=== PATIENT | male | born 1960 | race Caucasian/White ===

== ENCOUNTER 2019-05-06 14:24 | Observation (INO) | payer BC ==
[2019-05-06] MEDS ORDERED: NS 0.9% 1000 ML** 2,000 ML IV ONE (15:35)
--- NOTE | 2019-05-06 15:38 | ED ---
Abdominal Pain/Male - HPI Summary HPI Summary: Patient is a 59 y/o M presenting to the ED for a chief compliant of nausea and vomiting that began the night of 05/01/19. Patient reports that he was in [place] for an event and drank a few beers after which he felt nausea, vomiting, and generalized weakness. At that time, patient had an episode of vomiting with a streak of blood. He is currently complaining of the same symptoms as well as heartburn, dizziness, lightheadedness, and abdominal pain in the epigastric and umbilical regions. He last had a bowel movement on 05/05/19. Patient denies any fever, chills, erythema of eyes, sore throat, SOB, cough, diarrhea, dysuria, hematuria, myalgia, back pain, edema, or rash. PMHx is significant for clavicle fracture and PSHx is significant or PVD with stent placement in the bilateral legs and hip replacement on 02/10/19. He denies any abdominal surgeries or history of cancer. Patient admits weekly alcohol use, cigar use, and marijuana use daily. - History of Current Complaint Chief Complaint: EDAbdPain Stated Complaint: ABD PAIN PER PT Time Seen by Provider: 05/06/19 15:19 Hx Obtained From: Patient Onset/Duration: Sudden Onset, Lasting Days, Still Present Timing: Intermittent, Lasting Days Severity Initially: Moderate Severity Currently: Moderate Pain Intensity: 6 Pain Scale Used: 0-10 Numeric Location: Epigastric, Umbilical Radiates: No Aggravating Factor(s): Nothing Alleviating Factor(s): Nothing Associated Signs And Symptoms: Positive: Chest Pain - Heartburn, Dizzy, Decreased Appetite, Nausea, Vomiting. Negative: Fever, Cough, Urinary Symptoms - Negative dysuria or hematuria, Diarrhea - Allergies/Home Medications Allergies/Adverse Reactions: Allergies Allergy/AdvReac Type Severity Reaction Status Date / Time MS Penicillins [Penicillins] Allergy Unknown Verified 05/06/19 14:48 Reaction Details Home Medications: Home Medications Ibuprofen TAB* [Advil TAB*] 800 mg PO Q8H PRN 05/06/19 [History Confirmed ] Lisinopril/Hydrochlorothiazide [Lisinopril-Hctz 20-25 mg Tab] 1 tab PO DAILY [History Confirmed 05/06/19] Metoprolol Tartrate TAB* [Lopressor TAB*] 100 mg PO BID 05/06/19 [History Confirmed 05/06/19] amLODIPine TAB* [Norvasc 5 mg TAB*] 10 mg PO DAILY 05/06/19 [History Confirmed 05/06/19] PMH/Surg Hx/FS Hx/Imm Hx Previously Healthy: Yes Endocrine/Hematology History: Denies: Hx Diabetes Cardiovascular History: Reports: Hx Hypertension, Hx Peripheral Vascular Disease Denies: Hx Congestive Heart Failure, Hx Hypercholesterolemia, Hx Pacemaker/ ICD Musculoskeletal History: Reports: Hx of Fracture(s) - Clavicle Sensory History: Denies: Hx Legally Blind, Hx Deafness, Hx Hearing Aid Opthamlomology History: Denies: Hx Legally Blind EENT History: Denies: Hx Deafness Psychiatric History: Denies: Hx Panic Disorder - Surgical History Surgical History: Yes Surgery Procedure, Year, and Place: tonsilectomy, hip replacement, stent placement - Immunization History Immunizations Up to Date: Yes Infectious Disease History: No Infectious Disease History: Denies: Traveled Outside the [place] in Last 30 Days - Family History Known Family History: Negative: Diabetes - Social History Occupation: Employed Full-time Lives: With Family Alcohol Use: Weekly Hx Substance Use: Yes Substance Use Type: Reports: Marijuana Substance Use Comment - Amount & Last Used: daily Hx Tobacco Use: Yes Smoking Status (MU): Current Some Day Smoker Type: Cigars Do You Chew or Dip Tobacco: No Have You Chewed or Dipped Tobacco in the LAST YEAR: No Have You Smoked in the Last Year: Yes Review of Systems Negative: Fever, Chills Negative: Erythema Negative: Sore Throat Positive: Chest Pain - Heartburn Negative: Shortness Of Breath, Cough Positive: Abdominal Pain - Epigastric and umbilical, Vomiting, Nausea. Negative : Diarrhea Negative: Myalgia - Including back pain Negative: Rash Neurological: Other - Positive dizziness and lightheadedness Positive: Weakness - Generalized All Other Systems Reviewed And Are Negative: Yes Physical Exam - Summary Physical Exam Summary: Constitutional: Well-developed, Well-nourished, Alert. (-) Distressed Skin: Warm, Dry HENT: Normocephalic; Atraumatic. Dry oral mucosa. Eyes: Conjunctiva normal Neck: Musculoskeletal ROM normal neck. (-) JVD, (-) Stridor, (-) Tracheal deviation Cardio: Rhythm regular, rate normal, Heart sounds normal; Intact distal pulses; The pedal pulses are 2+ and symmetric. Radial pulses are 2+ and symmetric. (-) Murmur Pulmonary/Chest wall: Effort normal. (-) Respiratory distress, (-) Wheezes, (-) Rales Abd: Soft, (-) tenderness, (-) Distension, (-) Guarding, (-) Rebound Musculoskeletal: (-) Edema Lymph: (-) Cervical adenopathy Neuro: Alert, Oriented x3 Psych: Mood and affect Normal Triage Information Reviewed: Yes Vital Signs On Initial Exam: Initial Vitals Temp Pulse Resp BP Pulse Ox 98.2 F 81 16 85/54 98 05/06/19 14:41 05/06/19 14:41 05/06/19 14:41 05/06/19 14:41 05/06/19 14:41 Vital Signs Reviewed: Yes Procedures - Sedation Patient Received Moderate/Deep Sedation with Procedure: No Diagnostics - Vital Signs Vital Signs Temp Pulse Resp BP Pulse Ox 05/06/19 14:41 98.2 F 81 16 85/54 98 - Laboratory Result Diagrams: 05/06/19 15:54 05/06/19 15:54 Lab Statement: Any lab studies that have been ordered have been reviewed, and results considered in the medical decision making process. - Radiology Chest X-ray Radiology Interpretation Completed By: Radiologist Summary of Radiographic Findings: Chest X-ray IMPRESSION: FINDINGS CONSISTENT WITH COPD, NO EVIDENCE FOR ACUTE DISEASE. Reviewed by Dr. Beck. - CT Abdomen/Pelvis CT CT Interpretation Completed By: Radiologist Summary of CT Findings: Abdomen/Pelvis CT IMPRESSION: 1. NO EVIDENCE FOR ACUTE FINDING. 2. HEPATIC STEATOSIS. 3. PROMINENT ATHEROSCLEROTIC CHANGE. 4. SMALL HIATAL HERNIA. Reviewed by Dr. Beck. - Ultrasound Gallbladder US Ultrasound Interpretation Completed By: Radiologist Summary of Ultrasound Findings: Gallbladder US IMPRESSION: 1. NORMAL EXAMINATION OF THE GALLBLADDER. 2. FATTY INFILTRATION OF THE LIVER. 3. THERE IS A FOCAL AREA OF DECREASED ECHOGENICITY ADJACENT TO THE GALLBLADDER AND PORTAL REGION LIKELY REPRESENTING FOCAL SPARING ALTHOUGH A MASS CANNOT BE EXCLUDED. THIS CAN BE FURTHER EVALUATED WITH A MRI OF THE LIVER WITH CONTRAST. Reviewed by Dr. Beck. Abdominal Pain Male Course/Dx - Course Course Of Treatment: Patient is a 59 y/o M presenting to the ED for a chief compliant of nausea and vomiting that began the night of 05/01/19. Patient reports that he was in [place] for an event and drank a few beers after which he felt nausea, vomiting, and generalized weakness. At that time, patient had an episode of vomiting with a streak of blood. He is currently complaining of the same symptoms as well as heartburn, dizziness, lightheadedness, and abdominal pain in the epigastric and umbilical regions. He last had a bowel movement on . Patient denies any fever, chills, erythema of eyes, sore throat, SOB, cough, diarrhea, dysuria, hematuria, myalgia, back pain, edema, or rash. PMHx is significant for clavicle fracture and PSHx is significant or PVD with stent placement in the bilateral legs and hip replacement on 02/10/19. He denies any abdominal surgeries or history of cancer. Patient admits weekly alcohol use, cigar use, and marijuana use daily. On exam, dry oral mucosa. In the ED course , patient was given fluids. Laboratory abnormal findings: WBC 21.1, absolute neuts 15.2, absolute monos 2.1, sodium 130, potassium 3.1, chloride 91, anion gap 16, BUN 65, creatinine 4.18, glucose 125, lactic acid 2.1, calcium 11.9, c- reactive protein 52.65,. Abdomen/Pelvis CT IMPRESSION: 1. NO EVIDENCE FOR ACUTE FINDING. 2. HEPATIC STEATOSIS. 3. PROMINENT ATHEROSCLEROTIC CHANGE. 4. SMALL HIATAL HERNIA. Gallbladder US IMPRESSION: 1. NORMAL EXAMINATION OF THE GALLBLADDER. 2. FATTY INFILTRATION OF THE LIVER. 3. THERE IS A FOCAL AREA OF DECREASED ECHOGENICITY ADJACENT TO THE GALLBLADDER AND PORTAL. REGION LIKELY REPRESENTING FOCAL SPARING ALTHOUGH A MASS CANNOT BE EXCLUDED. THIS CAN BE. FURTHER EVALUATED WITH A MRI OF THE LIVER WITH CONTRAST. Chest X-ray IMPRESSION : FINDINGS CONSISTENT WITH COPD, NO EVIDENCE FOR ACUTE DISEASE. At 17:34, Dr. Longo agrees to [place] the [place] [facility] [place] a diagnosis of acute renal failure, vomiting, and gastritis. Patient will be admitted [place] [facility] [place] a diagnosis of acute renal failure, vomiting, and gastritis. - Diagnoses Provider Diagnoses: Acute renal failure, Vomiting, Gastritis - Provider Notifications Discussed Care Of Patient With: Zachary Espinosa - At 17:34, Dr. Longo agrees to admit the patient to [facility] [place] a diagnosis of acute renal failure, vomiting, and gastritis. Time Discussed With Above Provider: 17:34 Instructed by Provider To: Admit As Inpatient - Critical Care Time Critical Care Time: 30-74 min - 60 minutes Discharge ED - Sign-Out/Discharge Documenting (check all that apply): Patient Departure - Admit - Discharge Plan Condition: Stable Disposition: ADMITTED TO [facility] Referrals: Tejas Liang, ENVIRONMENTAL SUSTAINABILITY MANAGER [Primary Care Provider] - - Attestation Statements Document Initiated by Scribe: Yes Documenting Scribe: Sandy Tello Provider For Whom Scribe is Documenting (Include Credential): Richard Beck MD Scribe Attestation: Sandy Greenberg, scribed for Richard Beck MD on 05/06/19 at 1931. Status of Scribe Document: Ready
[2019-05-06 16:19] LABS: Hematocrit 45 % (42-52); Hemoglobin 14.9 g/dL (14.0-18.0); Mean Corpuscular HGB Conc 33 g/dL (31-36); Mean Corpuscular Hemoglobin 29 pg (27-31); Mean Corpuscular Volume 85 fL (80-94); Mean Platelet Volume 9.3 fL (7.4-10.4); Platelet Count 255 10^3/uL (150-450); Red Blood Count 5.22 10^6 /uL (4.18-5.48); Red Cell Distribution Width 14 % (10-15); White Blood Count 21.1 10^3/uL (3.5-10.8)
[2019-05-06 16:21] LABS: ABS Eosinophils 0.4 10^3/ul (0-0.6); ABS Lymphocytes 3.4 10^3/ul (1.0-4.8); ABS Monocytes 2.1 10^3/ul (0-0.8); ABS Neutrophils 15.2 10^3/ul (1.5-7.7); Eosinophil % 1.7 %; Lymphocyte % 16.1 %; Nucleated Red Blood Cells % 0.1
[2019-05-06 16:47] LABS: Albumin/Globulin Ratio 1.1 (1-3); BUN/Creatinine Ratio 15.6 (8-20); C Reactive Protein 52.65 mg/L (<8.01); Calcium 11.9 mg/dL (8.6-10.3); EGFR African American 17.9 (>60); EGFR Non-African American 14.8 (>60); Globulin 3.7 g/dL (2-4); Potassium 3.1 mmol/L (3.5-5.0); Total Bilirubin 0.7 mg/dL (0.2-1.0); Total Protein 7.7 g/dL (6.4-8.9)
[2019-05-06] MEDS ORDERED: Acetaminophen TAB* 325 MG PO PRN (19:08)
[2019-05-06] MEDS ORDERED: Morphine INJ* 2 MG/ML 1 ML SYRINGE (TWO MG - NEW SYRINGE VERSION) IV PRN (19:08)
[2019-05-06] MEDS ORDERED: Cyclobenzaprine TAB* 10 MG PO PRN (19:12)
[2019-05-06] MEDS ORDERED: Ondansetron INJ* 2 MG/ML VIAL IV PRN (19:14)
--- NOTE | 2019-05-06 20:39 | HP ---
CC: Tejas Liang NP * HISTORY AND PHYSICAL: DATE OF ADMISSION: 05/06/19 PRIMARY CARE PROVIDER: Tejas Liang NP. ATTENDING PHYSICIAN: Dr. Zachary Espinosa.* (DICTATED BY JOSE JUAN CARRERA NP) CHIEF COMPLAINT: Abdominal pain, nausea, and vomiting. HISTORY OF PRESENT ILLNESS: Mr. Padron is a 59-year-old male with past medical history of hypertension and peripheral vascular disease who presents to the emergency room today with 5 days of nausea, vomiting, and abdominal pain. The patient denies any sick contacts. He did have a right hip replacement back in March and has been doing well since that time, though 5 days ago somewhat suddenly developed abdominal pain, nausea, and vomiting. During that time, he has been unable to tolerate any oral intake and has vomited up everything that he has attempted to eat or drink. Abdominal pain at the worst is 6/10. He has not taken any pain medications for this, but notes that the pain is better when he is sitting up and worse when he is lying down. He also notes heartburn when lying down. He does occasionally have heartburn, though this is more significant than his usual. At this time, in the emergency room, he rates his abdominal pain a 2/10. He has no nausea or vomiting and on my exam, he was eating a sandwich. He reports using ibuprofen approximately 3 to 4 times per week and uses 400 to 600 mg per day. The patient denies any fever, chills, shortness of breath, cough, diarrhea, or dysuria. In the emergency room, the patient was found to have leukocytosis with a white blood count of 21. He was noted to have mild hyponatremia and hypokalemia as well as a significant acute kidney injury with a creatinine of 4.18. Most recent labs in our system are from approximately 1 year ago and at that time, creatinine was 1.68. He was also noted to have a lactic acid of 2.1 and a CRP of 52. He was hypotensive on arrival. He received IV fluids with resolution of hypotension. He additionally had imaging which was unremarkable for any acute process. Due to these laboratory findings, the hospitalist service was asked to evaluate for admission. PAST MEDICAL HISTORY: 1. Hypertension. 2. Peripheral vascular disease. PAST SURGICAL HISTORY: 1. Right hip replacement in 2018. 2. Bilateral lower extremity stent placement in 2016. HOME MEDICATIONS: 1. Amlodipine 10 mg p.o. daily. 2. Flexeril 10 mg p.o. t.i.d. p.r.n. for muscle spasm. 3. Ibuprofen 800 mg p.o. q.8 hours p.r.n. for pain. 4. Lisinopril/hydrochlorothiazide 20/25 one tab p.o. daily. 5. Metoprolol tartrate 100 mg p.o. b.i.d. ALLERGIES: PENICILLIN. FAMILY HISTORY: The patient has a significant family history of coronary artery disease with his mother dying of an NH at 71 and his father dying of an NH at 69. SOCIAL HISTORY: The patient has a [id number] smoking history. He quit smoking cigarettes 4 years ago and now smokes 2 cigars per day. He reports drinking 3 to 4 beers and a glass of whisky each night, although has not been drinking since his hip replacement in March. He does use recreational marijuana. 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 He lives at home and his daughter lives with him intermittently. His daughter, Peg, will be his surrogate decision maker in the event he is unable to make his own decisions. REVIEW OF SYSTEMS: An 11-point review of systems was performed and all the pertinent positive and negative findings are in the HPI. All other systems are negative. PHYSICAL EXAMINATION GENERAL: Mr. Padron is a well-developed, well-nourished white male, sitting in bed , in no acute distress. He appears his stated age. VITAL SIGNS: Temp 98.2, heart rate 75, respiratory rate 16, oxygen saturation 97 % on room air, blood pressure 137/61. HEENT: Head is atraumatic, normocephalic. Visual fernandes are grossly intact. Pupils are equal, round, and reactive to light and accommodation. Oral mucous membranes moist. NECK: Thyroid not palpable. Trachea at midline. No lymphadenopathy. RESPIRATORY: Symmetrical chest expansion. Lungs are clear to auscultation throughout. No rhonchi, wheezes, or rales. CARDIOVASCULAR: Regular rate and rhythm. S1, S2 present. No murmurs, rubs, or gallops. No JVD. ABDOMEN: Soft. Tender to palpation throughout. Bowel sounds normoactive. EXTREMITIES: Skin warm and smooth bilaterally. No edema. No clubbing or cyanosis. Pedal pulses 2+ bilaterally. NEUROLOGIC: Awake, alert, and oriented x4. Moves all extremities. DIAGNOSTIC STUDIES/LAB DATA: WBC 21.1, RBC 5.22, hemoglobin 14.9, hematocrit 45, platelets 255. Sodium 130, potassium 3.1, chloride 91, carbon dioxide 23, BUN 65, creatinine 4.18, glucose 125, lactic acid 2.1. CRP 52. Abdomen and pelvis CT reads as no evidence for acute finding. Hepatic steatosis. Prominent atherosclerotic change. Small hiatal hernia. Gallbladder ultrasound reads as normal examination of the gallbladder. Fatty infiltration of the liver. There is a focal area of decreased echogenicity adjacent to the gallbladder and portal region, likely representing focal spine, although a mass cannot be excluded. This can be further evaluated with an MRI of the liver with contrast. Chest x-ray reads as findings consistent with COPD. No evidence for acute disease. ASSESSMENT AND PLAN: Mr. Padron is a 59-year-old male with past medical history of hypertension and peripheral vascular disease who presents to the emergency department today with 5 days of nausea, vomiting, and abdominal pain and was found to have acute kidney injury and meeting systemic inflammatory response syndrome criteria. The patient will be admitted to observation for: 1. Acute kidney injury. The patient's creatinine is 4.18 and previous creatinine on record from 2018 was 1.68. I suspect that this is all secondary to dehydration from his vomiting. He has received 2 L of fluid in the emergency room and I will continue aggressive fluid resuscitation with LR 200 mL per hour overnight. I will recheck a BMP in the morning. 2. Systemic inflammatory response syndrome. The patient is meeting systemic inflammatory response syndrome criteria with leukocytosis and a lactic acid of 2.1. I suspect this is secondary to a viral gastroenteritis and not any bacterial source. There were no acute findings on imaging. A UA is pending at this time, though I have low suspicion for a urinary tract infection. Lactate will be rechecked at 1999, though antibiotics will not be initiated at this time. 3. Gastroenteritis. This very much appears to be a viral gastroenteritis lasting approximately 5 days. While in the emergency room, the patient is eating a sandwich and does not have any significant nausea, vomiting, or abdominal pain, so I suspect that this is nearly resolved. We will continue supportive care. 4. Abnormal ultrasound findings. As noted above, there were some abnormal findings noted on the gallbladder ultrasound and the radiologist reported that a mass could not be excluded. Radiology recommended an MRI of the liver with contrast, which I have ordered at this time due to the presence of abdominal pain. We will await the results of that MRI. 5. Hypokalemia. This is secondary to vomiting. I will replete with 2 runs of IV potassium and recheck BMP in the morning. 6. Hypertension. The patient was hypotensive on arrival to the emergency room , though is now normotensive after some fluid resuscitation. I will hold amlodipine, lisinopril, and hydrochlorothiazide at this time. I have ordered his metoprolol at a decreased dose and we will reevaluate blood pressure in the morning. 7. Peripheral vascular disease. The patient is not currently on any antiplatelet therapy, but has no acute issues related to peripheral vascular disease. 8. FEN. Again, the patient will be fluid resuscitated with LR and I will replete his potassium. At this point, he will be n.p.o. for the liver ultrasound, though thereafter can have a regular diet. 9. Code status. The patient wishes to be a DNR. 10. DVT prophylaxis. According to the DVT Risk Assessment, the patient scores a 2, putting him at moderate risk. We will use SCDs and ambulation as prophylaxis. TIME SPENT: Approximately 50 minutes were spent on this admission, greater than half of that time was spent [id number] with the patient obtaining my history, performing my physical exam, and reviewing the plan of care. This case has been discussed with my attending, Dr. Espinosa, who is in agreement with the plan of care. JOSE JUAN CARRERA, MAIL CLERKS SUPERVISOR [id number]/[facility] #: [id number] [place]
[2019-05-06] MEDS ORDERED: LORazepam TAB(*) 1 MG PO ONE (21:00)
[2019-05-06] MEDS: KCL 20 MEQ/100 ML IVPREMIX* 20 MEQ/100 ML BAG IV SCH ×2 (21:29→23:35)
[2019-05-06] MEDS: Lactated Ringers 1000 ML Bag* 1,000 ML IV SCH (21:29)
[2019-05-06] MEDS: Metoprolol Tartrate TAB* 25 MG PO SCH (23:04)
[2019-05-06] MEDS ORDERED: Calcium Carbonate CHEW TAB* 500 MG (TUMS) PO PRN (23:49)
[2019-05-07] MEDS: Lactated Ringers 1000 ML Bag* 1,000 ML IV SCH (02:06)
[2019-05-07 07:34] LABS: Hematocrit 38 % (42-52); Hemoglobin 12.9 g/dL (14.0-18.0); Mean Corpuscular HGB Conc 34 g/dL (31-36); Mean Corpuscular Hemoglobin 29 pg (27-31); Mean Corpuscular Volume 85 fL (80-94); Mean Platelet Volume 9.4 fL (7.4-10.4); Platelet Count 201 10^3/uL (150-450); Red Blood Count 4.52 10^6 /uL (4.18-5.48); Red Cell Distribution Width 14 % (10-15); White Blood Count 13.1 10^3/uL (3.5-10.8)
[2019-05-07 07:42] LABS: ABS Eosinophils 0.3 10^3/ul (0-0.6); ABS Lymphocytes 2.3 10^3/ul (1.0-4.8); ABS Monocytes 1.7 10^3/ul (0-0.8); ABS Neutrophils 8.9 10^3/ul (1.5-7.7); Eosinophil % 2.2 %; Lymphocyte % 17.4 %
[2019-05-07 07:59] LABS: BUN/Creatinine Ratio 23.8 (8-20); Calcium 9.8 mg/dL (8.6-10.3); EGFR African American 36.9 (>60); EGFR Non-African American 30.5 (>60); Potassium 2.8 mmol/L (3.5-5.0)
[2019-05-07] MEDS ORDERED: Potassium Chlor TAB* 20 MEQ TAB.ER PO ONE ×2 (08:06→13:56)
[2019-05-07] MEDS: Metoprolol Tartrate TAB* 25 MG PO SCH (11:25)
[2019-05-07] MEDS: KCL 20 MEQ/100 ML IVPREMIX* 20 MEQ/100 ML BAG IV SCH ×2 (11:27→14:39)
[2019-05-07 16:01] VITALS: BP 138/62
[2019-05-07 16:39] LABS: BUN/Creatinine Ratio 21.9 (8-20); Calcium 10.5 mg/dL (8.6-10.3); EGFR African American 41.6 (>60); EGFR Non-African American 34.4 (>60); Potassium 4.1 mmol/L (3.5-5.0)
--- NOTE | 2019-05-07 21:37 | DS ---
CC: Tejas Liang NP * DISCHARGE SUMMARY: DATE OF ADMISSION: 05/06/19 DATE OF DISCHARGE: 05/07/19 PRIMARY CARE PROVIDER: Tejas Liang NP. ATTENDING PHYSICIAN: Zachary Espinosa MD.* (DICTATED BY JOSE JUAN CARRERA NP) PRIMARY DIAGNOSES: 1. Acute kidney injury secondary to dehydration. 2. Systemic inflammatory response syndrome. 3. Viral gastroenteritis. 4. Hypokalemia. SECONDARY DIAGNOSES: 1. Hypertension. 2. Peripheral vascular disease. STUDIES WHILE IN THE HOSPITAL: Abdomen and pelvis CT on 05/06/19 reads as: No evidence of acute finding. Hepatosteatosis. Prominent atherosclerotic change. Small hiatal hernia. Gallbladder ultrasound on 05/06/19 read as: Normal examination of the gallbladder. Fatty infiltration of the liver. There is a focal area of decreased echogenicity adjacent to the gallbladder and portal region likely representing focal sparing, although a mass cannot be excluded. This can be further evaluated with an MRI of the liver with contrast. Chest x-ray on 05/06/19 reads as: Findings consistent with COPD. No evidence of acute disease. Abdomen x-ray on 05/07/19 reads as: Fatty infiltration of the liver. There are areas of focal sparing in the periportal region and adjacent to the gallbladder, which would account for the prior ultrasound abnormalities. There is no evidence for mass. HISTORY OF PRESENT ILLNESS AND HOSPITAL COURSE: Mr. Padron is a 59-year-old male with past medical history of hypertension and peripheral vascular disease, who presented to the emergency room on 05/06/19 with complaints of abdominal pain and vomiting. Please see the history and physical done by myself for a complete summary of the events leading up to this hospitalization. In short, the patient reported 5 days of severe abdominal pain and vomiting so severe that he was unable to even keep any water down. For that reason, he presented to the emergency room. In the emergency room, he was noted to have leukocytosis with a white blood cell count of 21. He had some mild hyponatremia and hypokalemia and acute kidney injury with creatinine of 4.18. He does have lactic acid of 2.1 and due to the lactic acid and leukocytosis, he did meet criteria for SIRS, although this was secondary to dehydration and viral gastroenteritis and there is no evidence of any bacterial infection, so antibiotics were not started. The patient received aggressive IV hydration for the acute kidney injury. As of this morning, creatinine was down to 2.23. Lactic acid did resolve with IV fluids. The patient was again hypokalemic this morning and he was repleted with potassium chloride. The patient was very adamant that he wanted to leave the hospital today and did not want to spend another night in the hospital. I did check another BMP this afternoon after potassium repletion and repeat BMP shows potassium of 4.1 and creatinine down to 2.01. I will note that based on prior records from 2018, the patient's creatinine at that time was 1.68. It is unclear if that is his baseline or not, although he is clearly improving. He has not had any further abdominal pain, nausea, or vomiting since here in the hospital and has been able to tolerate a regular diet. There was a concern on gallbladder ultrasound for a possible mass, and so an MRI of the liver was performed, which was unremarkable. This information was relayed to the patient. On exam, the patient is alert and oriented x4. He has no focal neurological deficits. His heart has a regular rate and rhythm without murmurs, rubs, or gallops. His lungs are clear to auscultation without rhonchi, wheezes, or rubs. Abdomen is soft and nontender to palpation. There is no edema. Physical exam is otherwise benign. Mr. Padron is stable for discharge today. Most recent vitals are as follows: Temperature 97.5, heart rate 74, respiratory rate is 22, oxygen saturation 96% on room air, blood pressure 138/62. DISCHARGE MEDICATIONS: Continued medications: 1. Amlodipine 10 mg p.o. daily. 2. Flexeril 10 mg p.o. t.i.d. p.r.n. spasms. 3. Lisinopril/hydrochlorothiazide 20/25 mg 1 tablet p.o. daily. 4. Metoprolol tartrate 100 mg p.o. b.i.d. Discontinued medication: Ibuprofen. DISCHARGE PLAN: Mr. Padron will be discharged home. Activity will be as tolerated. Diet will be regular as tolerated. Medications are as noted above. The patient can resume his usual medications with the exception of ibuprofen, which he should not take at this time due to the presence of acute kidney injury. He does have a creatinine clearance of 39 at this point and that is adjusted for body weight, so it is safe for him to resume his lisinopril at this point. I have strongly advised the patient that he should remain hydrated. I did order a repeat BMP that the patient will have drawn on 05/10/19. Results of that will go to the patient's primary care provider to ensure that acute kidney injury continues to resolve and potassium remains stable. The patient should follow up with his PCP in the next 4 to 7 days. He has been advised to return to the emergency room or nearest hospital for any worsening of symptoms, shortness of breath, lightheadedness, dizziness, chest discomfort, high fevers, chills, night sweats, loss of consciousness, or any other worrisome signs or symptoms. DISCHARGE CONDITION: Stable. DISCHARGE DISPOSITION: Home. This is a summarized report of a complex medical history and hospital stay. For further details, please see the entire medical record. TIME SPENT: Approximately 45 minutes was spent on this discharge. JOSE JUAN CARRERA NP [id number]/[facility] #: [id number] [place]
== END 2019-05-07 17:20 | disposition home or self-care (01) ==
LOC: ED 14:24 → MED 19:08
PROVIDERS: ADMIT Internal Medicine; ATTEND Internal Medicine
DX: N17.9 Acute kidney failure, unspecified (principal); E86.0 Dehydration; R65.10 Systemic inflammatory response syndrome (SIRS) of non-infectious origin without acute organ dysfunction; A08.4 Viral intestinal infection, unspecified; E87.6 Hypokalemia; I10 Essential (primary) hypertension; I73.9 Peripheral vascular disease, unspecified; Z79.899 Other long term (current) drug therapy; Z88.0 Allergy status to penicillin; F17.210 Nicotine dependence, cigarettes, uncomplicated; R11.2 Nausea with vomiting, unspecified
CPT/HCPCS: 36415; 71046; 74176; 74181; 76705; 80048; 80053; 83605; 83690; 85025; 86140; 86850; 86900; 86901; 87040; 96361; 96365; 96366; 96375; 99285; 99406; A9270-GY; G0378; J2405; J3480

== ENCOUNTER 2022-06-20 12:59 | Inpatient (IN) ==
[2022-06-20] MEDS ORDERED: Ondansetron 4 mg VIAL 2 MG/ML 2 ml VIAL IV ONE ×2 (13:21→14:34)
[2022-06-20] MEDS ORDERED: NS 0.9% 1000 ml BAG 1,000 ML IV ONE ×2 (13:21→16:50)
[2022-06-20] MEDS ORDERED: Morphine 4 MG/ML VIAL (1 ml) IV ONE ×2 (13:22→17:43)
[2022-06-20 13:38] LABS: ABS Basophils 0.1 10^3/ul (0-0.2); ABS Lymphocytes 0.7 10^3/ul (1.0-4.8); ABS Monocytes 0.9 10^3/ul (0-0.8); ABS Neutrophils 14.9 10^3/ul (1.5-7.7); Hematocrit 53 % (42-52); Hemoglobin 17.2 g/dL (14.0-18.0); Lymphocyte % 4.2 %; Mean Corpuscular HGB Conc 33 g/dL (31-36); Mean Corpuscular Hemoglobin 28 pg (27-31); Mean Corpuscular Volume 87 fL (80-94); Mean Platelet Volume 9.3 fL (7.4-10.4); Nucleated Red Blood Cells % 0.1; Platelet Count 214 10^3/uL (150-450); Red Blood Count 6.08 10^6 /uL (4.18-5.48); Red Cell Distribution Width 15 % (10-15); White Blood Count 16.6 10^3/uL (3.5-10.8)
[2022-06-20 13:42] LABS: INR 1.05 (0.88-1.18)
[2022-06-20 14:46] LABS: Albumin 3.7 g/dL (3.2-5.2); Albumin/Globulin Ratio 1.1 (1-3); Calcium 9.7 mg/dL (8.6-10.3); Globulin 3.3 g/dL (2-4); Potassium 3.6 mmol/L (3.5-5.0); Total Bilirubin 0.9 mg/dL (0.2-1.0); eGFR CKD-EPI 62.3 (>60)
[2022-06-20] MEDS ORDERED: Iohexol 350 (CONTRAST) 500 ML MDV IV ONE (15:01)
[2022-06-20 15:04] LABS: High Sensitivity Troponin 1 Hr 48 pg/mL (<20)
[2022-06-20] MEDS ORDERED: Cefepime 2 GM in Dextrose 2 GM/50 ML BAG IV ONE (15:50)
[2022-06-20] MEDS ORDERED: Metoclopramide 5 MG/ML VIAL (10 mg) IV SLOW PU ONE (16:50)
[2022-06-20 16:55] LABS: Venous Bicarbonate HCO3 24.9 mmol/L (24-28)
[2022-06-20] MEDS ORDERED: Enoxaparin 40 MG/0.4 ML SYR SUBCUT SCH (20:00)
[2022-06-20] MEDS ORDERED: Metoprolol Tartrate 5 mg VIAL 5 ml VIAL (1 mg/ml) IV PRN (20:18)
[2022-06-20] MEDS ORDERED: Cefepime ADVAN 1 GM in NS 0.9% 50 ML 50 ML IVPB SCH (21:00)
[2022-06-20 21:11] LABS: Urine Appearance Clear; Urine Bilirubin Negative (Negative); Urine Blood Negative (Negative); Urine Color Yellow; Urine Glucose Negative (Negative); Urine Ketones 1+ (Negative); Urine Nitrite Negative (Negative); Urine Protein 2+(100 mg/dL) (Negative); Urine Specific Gravity 1.023 (1.002-1.030); Urine Urobilinogen Negative (Negative)
[2022-06-20 21:16] LABS: Urine Bacteria Absent (Absent); Urine Red Blood Cell Trace(0-2/hpf) (Absent); Urine White Blood Cell Trace(0-5/hpf) (Absent)
[2022-06-20] MEDS: Heparin 5000 UNITS/ML 1 mL VIAL SUBCUT SCH (22:36)
[2022-06-20] MEDS: Ondansetron 4 mg VIAL 2 MG/ML 2 ml VIAL IV PRN (23:13)
[2022-06-20] MEDS: NS 0.9% 1000 ml BAG 1,000 ML IV SCH (23:13)
[2022-06-21] MEDS: Cefepime 1 GM in Dextrose 1 GM/50 ML BAG IV SCH ×2 (05:10→17:08)
[2022-06-21] MEDS: Heparin 5000 UNITS/ML 1 mL VIAL SUBCUT SCH ×3 (05:31→21:02)
[2022-06-21] MEDS: Ondansetron 4 mg VIAL 2 MG/ML 2 ml VIAL IV PRN ×4 (05:33→21:02)
[2022-06-21 06:34] LABS: ABS Lymphocytes 1.3 10^3/ul (1.0-4.8); ABS Monocytes 1.1 10^3/ul (0-0.8); ABS Neutrophils 9.2 10^3/ul (1.5-7.7); Eosinophil % 0.1 %; Hematocrit 43 % (42-52); Hemoglobin 14.4 g/dL (14.0-18.0); Lymphocyte % 11.1 %; Mean Corpuscular HGB Conc 33 g/dL (31-36); Mean Corpuscular Hemoglobin 29 pg (27-31); Mean Corpuscular Volume 88 fL (80-94); Mean Platelet Volume 8.9 fL (7.4-10.4); Platelet Count 164 10^3/uL (150-450); Red Blood Count 4.92 10^6 /uL (4.18-5.48); Red Cell Distribution Width 15 % (10-15); White Blood Count 11.6 10^3/uL (3.5-10.8)
[2022-06-21 07:00] LABS: Calcium 7.7 mg/dL (8.6-10.3); Magnesium 1.6 mg/dL (1.9-2.7)
[2022-06-21] MEDS ORDERED: Magnesium Sulf 4 GM/100 ML IV 4,000 MG/100 ML BAG IVPB ONE (08:49)
[2022-06-21] MEDS ORDERED: Cefepime ADVAN 1 GM in NS 0.9% 50 ML 50 ML IVPB SCH (09:00)
[2022-06-21] MEDS ORDERED: Cefepime 1 GM in Dextrose 1 GM/50 ML BAG IV SCH (09:00)
[2022-06-21 09:06] LABS: Phosphorus 2.2 mg/dL (2.5-5.0)
[2022-06-21] MEDS ORDERED: Potassium Phosphate IV 15 MMOL in NS 0.9% 250 ml 250 ML IVPB ONE (09:14)
[2022-06-21] MEDS ORDERED: Potassium Chlor 10 meq TAB PO SCH (09:30)
[2022-06-21 15:32] LABS: Calcium 7.7 mg/dL (8.6-10.3); Potassium 2.8 mmol/L (3.5-5.0); eGFR CKD-EPI 81.3 (>60)
[2022-06-21 17:03] LABS: Phosphorus 2.2 mg/dL (2.5-5.0)
[2022-06-21] MEDS: Scopolamine 1 mg/72hr PATCH TRANSDERM SCH (17:05)
[2022-06-21] MEDS: KCL 20 MEQ/100 ML IVPREMIX 20 MEQ/100 ML BAG IV SCH ×3 (18:29→22:54)
[2022-06-22] MEDS: NS 0.9% 1000 ml BAG 1,000 ML IV SCH ×3 (00:46→21:52)
[2022-06-22] MEDS: KCL 20 MEQ/100 ML IVPREMIX 20 MEQ/100 ML BAG IV SCH (00:46)
[2022-06-22 06:19] LABS: Hematocrit 47 % (42-52); Hemoglobin 15.4 g/dL (14.0-18.0); Mean Corpuscular HGB Conc 33 g/dL (31-36); Mean Corpuscular Hemoglobin 29 pg (27-31); Mean Corpuscular Volume 88 fL (80-94); Mean Platelet Volume 8.7 fL (7.4-10.4); Platelet Count 188 10^3/uL (150-450); Red Blood Count 5.31 10^6 /uL (4.18-5.48); Red Cell Distribution Width 15 % (10-15); White Blood Count 15.2 10^3/uL (3.5-10.8)
[2022-06-22 06:25] LABS: ABS Lymphocytes 1.5 10^3/ul (1.0-4.8); ABS Monocytes 1.7 10^3/ul (0-0.8); Eosinophil % 0.2 %; Lymphocyte % 9.6 %; Nucleated Red Blood Cells % 0.1
[2022-06-22 07:00] LABS: Calcium 7.5 mg/dL (8.6-10.3); Magnesium 1.9 mg/dL (1.9-2.7); Phosphorus 1.6 mg/dL (2.5-5.0); Potassium 3.6 mmol/L (3.5-5.0); eGFR CKD-EPI 88.3 (>60)
[2022-06-22] MEDS ORDERED: Sodium Phosphate IV 30 MMOL in NS 0.9% 250 ml 250 ML IV ONE (08:15)
[2022-06-22] MEDS ORDERED: HYDROmorphone 1 MG/1 ML SYRINGE IV SLOW PU PRN ×2 (09:23→09:26)
[2022-06-22] MEDS: Ondansetron 4 mg VIAL 2 MG/ML 2 ml VIAL IV PRN ×3 (09:57→21:49)
[2022-06-22] MEDS: Pantoprazole VIAL 40 MG VIAL IV SCH ×2 (11:22→21:50)
[2022-06-22] MEDS ORDERED: Metoclopramide 5 MG/ML VIAL (10 mg) IV SLOW PU ONE (11:28)
[2022-06-22 14:38] LABS: Hematocrit 44 % (42-52); Hemoglobin 14.6 g/dL (14.0-18.0)
[2022-06-22] MEDS: HYDROmorphone 1 MG/1 ML SYRINGE IV SLOW PU PRN ×3 (14:48→21:48)
[2022-06-22 15:46] LABS: Calcium 7.2 mg/dL (8.6-10.3); Potassium 3.7 mmol/L (3.5-5.0); eGFR CKD-EPI 81.3 (>60)
[2022-06-22 17:31] LABS: Phosphorus 3.5 mg/dL (2.5-5.0)
[2022-06-22] MEDS: Metoclopramide 5 MG/ML VIAL (10 mg) IV PRN (18:12)
[2022-06-23] MEDS: HYDROmorphone 1 MG/1 ML SYRINGE IV SLOW PU PRN ×8 (03:02→23:29)
[2022-06-23] MEDS: Metoclopramide 5 MG/ML VIAL (10 mg) IV PRN ×2 (05:45→19:55)
[2022-06-23 06:47] LABS: ABS Lymphocytes 1.6 10^3/ul (1.0-4.8); ABS Monocytes 1.4 10^3/ul (0-0.8); ABS Neutrophils 10.4 10^3/ul (1.5-7.7); Eosinophil % 0.2 %; Hematocrit 41 % (42-52); Hemoglobin 13.7 g/dL (14.0-18.0); Lymphocyte % 11.9 %; Mean Corpuscular HGB Conc 33 g/dL (31-36); Mean Corpuscular Hemoglobin 29 pg (27-31); Mean Corpuscular Volume 88 fL (80-94); Mean Platelet Volume 8.6 fL (7.4-10.4); Nucleated Red Blood Cells % 0.1; Platelet Count 168 10^3/uL (150-450); Red Blood Count 4.72 10^6 /uL (4.18-5.48); Red Cell Distribution Width 15 % (10-15); White Blood Count 13.4 10^3/uL (3.5-10.8)
[2022-06-23 07:25] LABS: Albumin 2.8 g/dL (3.2-5.2); Albumin/Globulin Ratio 1.3 (1-3); Calcium 7.3 mg/dL (8.6-10.3); Globulin 2.1 g/dL (2-4); Magnesium 1.4 mg/dL (1.9-2.7); Phosphorus 1.7 mg/dL (2.5-5.0); Potassium 3.1 mmol/L (3.5-5.0); Total Bilirubin 0.6 mg/dL (0.2-1.0); Total Protein 4.9 g/dL (6.4-8.9); eGFR CKD-EPI 92.8 (>60)
[2022-06-23] MEDS: NS 0.9% 1000 ml BAG 1,000 ML IV SCH (08:29)
[2022-06-23] MEDS: Pantoprazole VIAL 40 MG VIAL IV SCH ×2 (08:29→21:00)
[2022-06-23] MEDS: Ondansetron 4 mg VIAL 2 MG/ML 2 ml VIAL IV PRN ×3 (08:29→23:27)
[2022-06-23] MEDS ORDERED: Potassium Phosphate IV 30 MMOL in NS 0.9% 250 ml 250 ML IVPB ONE (08:55)
[2022-06-23] MEDS ORDERED: KCL 20 MEQ/100 ML IVPREMIX 20 MEQ/100 ML BAG IV ONE (08:56)
[2022-06-23] MEDS ORDERED: Magnesium Sulf 4 GM/100 ML IV 4,000 MG/100 ML BAG IVPB ONE (08:57)
[2022-06-23] MEDS ORDERED: Dextrose 50% Syringe 50 ml 25 GM/50 ML SYRINGE IV PUSH PRN (08:58)
[2022-06-23] MEDS ORDERED: Acetaminophen IV 1 GM/100ML 1,000 MG/100 ML BAG IV PRN (10:10)
[2022-06-23] MEDS: D5W NS 0.9% 20Meq KCL 1000 ml 1,000 ML IV SCH ×2 (10:30→21:03)
[2022-06-23] MEDS: Prochlorperazine 5 mg/ml 2 ml VIAL (10 mg) IV PRN ×2 (11:12→18:24)
[2022-06-23 14:55] LABS: Calcium 7.3 mg/dL (8.6-10.3); Magnesium 2.8 mg/dL (1.9-2.7); Phosphorus 2.2 mg/dL (2.5-5.0); Potassium 3.4 mmol/L (3.5-5.0); eGFR CKD-EPI 88.3 (>60)
[2022-06-23] MEDS: PPN (PERIPHERAL) 24 HR with D10W 1000 ml BAG 1,000 ML, Amino Acid Infusion 10% 850 ML, ... IV SCH (19:05)
[2022-06-24] MEDS: HYDROmorphone 1 MG/1 ML SYRINGE IV SLOW PU PRN ×7 (02:25→22:51)
[2022-06-24] MEDS: Prochlorperazine 5 mg/ml 2 ml VIAL (10 mg) IV PRN ×2 (02:34→20:09)
[2022-06-24 06:24] LABS: ABS Eosinophils 0.1 10^3/ul (0-0.6); ABS Lymphocytes 1.6 10^3/ul (1.0-4.8); ABS Monocytes 1.2 10^3/ul (0-0.8); ABS Neutrophils 8.9 10^3/ul (1.5-7.7); Eosinophil % 0.9 %; Hematocrit 38 % (42-52); Hemoglobin 12.8 g/dL (14.0-18.0); Lymphocyte % 13.2 %; Mean Corpuscular HGB Conc 34 g/dL (31-36); Mean Corpuscular Hemoglobin 28 pg (27-31); Mean Corpuscular Volume 85 fL (80-94); Mean Platelet Volume 8.8 fL (7.4-10.4); Nucleated Red Blood Cells % 0.1; Platelet Count 142 10^3/uL (150-450); Red Cell Distribution Width 15 % (10-15); White Blood Count 11.9 10^3/uL (3.5-10.8)
[2022-06-24 06:40] LABS: Albumin 2.5 g/dL (3.2-5.2); Albumin/Globulin Ratio 1.3 (1-3); Calcium 7.4 mg/dL (8.6-10.3); Magnesium 1.7 mg/dL (1.9-2.7); Phosphorus 1.8 mg/dL (2.5-5.0); Potassium 3.4 mmol/L (3.5-5.0); Total Bilirubin 0.7 mg/dL (0.2-1.0); Total Protein 4.5 g/dL (6.4-8.9); eGFR CKD-EPI 84.1 (>60)
[2022-06-24] MEDS: Pantoprazole VIAL 40 MG VIAL IV SCH ×2 (07:55→20:09)
[2022-06-24] MEDS: Ondansetron 4 mg VIAL 2 MG/ML 2 ml VIAL IV PRN ×2 (07:56→22:51)
[2022-06-24] MEDS: D5W NS 0.9% 20Meq KCL 1000 ml 1,000 ML IV SCH (08:00)
[2022-06-24] MEDS ORDERED: Magnesium Sulfate 2 gm BAG 2 GM/50 ML BAG IVPB ONE (09:26)
[2022-06-24] MEDS ORDERED: Potassium Phosphate IV 30 MMOL in NS 0.9% 250 ml 250 ML IVPB ONE (10:30)
[2022-06-24] MEDS: Metoclopramide 5 MG/ML VIAL (10 mg) IV PRN (15:03)
[2022-06-24] MEDS: Scopolamine 1 mg/72hr PATCH TRANSDERM SCH (17:10)
[2022-06-24] MEDS: PPN (PERIPHERAL) 24 HR with D10W 1000 ml BAG 1,000 ML, Amino Acid Infusion 10% 850 ML, ... IV SCH (17:11)
[2022-06-25] MEDS: HYDROmorphone 1 MG/1 ML SYRINGE IV SLOW PU PRN ×5 (02:15→19:41)
[2022-06-25] MEDS: Prochlorperazine 5 mg/ml 2 ml VIAL (10 mg) IV PRN (02:16)
[2022-06-25] MEDS: Metoclopramide 5 MG/ML VIAL (10 mg) IV PRN (06:34)
[2022-06-25 07:06] LABS: Albumin 2.6 g/dL (3.2-5.2); Albumin/Globulin Ratio 1.4 (1-3); Calcium 7.7 mg/dL (8.6-10.3); Globulin 1.9 g/dL (2-4); Magnesium 1.6 mg/dL (1.9-2.7); Phosphorus 2.6 mg/dL (2.5-5.0); Potassium 3.5 mmol/L (3.5-5.0); Total Bilirubin 0.8 mg/dL (0.2-1.0); Total Protein 4.5 g/dL (6.4-8.9); eGFR CKD-EPI 80.3 (>60)
[2022-06-25 07:15] LABS: ABS Eosinophils 0.1 10^3/ul (0-0.6); ABS Lymphocytes 1.3 10^3/ul (1.0-4.8); ABS Monocytes 1.4 10^3/ul (0-0.8); Eosinophil % 0.8 %; Hematocrit 39 % (42-52); Hemoglobin 12.9 g/dL (14.0-18.0); Lymphocyte % 10.2 %; Mean Corpuscular HGB Conc 34 g/dL (31-36); Mean Corpuscular Hemoglobin 29 pg (27-31); Mean Corpuscular Volume 86 fL (80-94); Mean Platelet Volume 9.5 fL (7.4-10.4); Nucleated Red Blood Cells % 0.1; Platelet Count 135 10^3/uL (150-450); Red Blood Count 4.46 10^6 /uL (4.18-5.48); Red Cell Distribution Width 15 % (10-15); White Blood Count 12.9 10^3/uL (3.5-10.8)
[2022-06-25] MEDS: Pantoprazole VIAL 40 MG VIAL IV SCH ×2 (07:48→21:19)
[2022-06-25] MEDS ORDERED: Magnesium Sulfate IV 3 GM in NS 0.9% 100 ml BAG 100 ML IVPB ONE (08:00)
[2022-06-25] MEDS ORDERED: fentaNYL PATCH 12 MCG/HR 1 PATCH TRANSDERM SCH (11:00)
[2022-06-25] MEDS: Morphine ORAL CONCENTRATE 5 MG/0.25 ML ORAL.SYRIN SL PRN ×2 (11:02→13:46)
[2022-06-25 11:06] LABS: Ferritin 232.4 ng/mL (24-336)
[2022-06-25 12:44] LABS: Rapid COVID-19 Molecular Undetected (Undetected)
[2022-06-25] MEDS ORDERED: PPN (PERIPHERAL) 24 HR with D10W 1000 ml BAG 1,000 ML, Amino Acid Infusion 10% 850 ML, ... IV SCH (17:00)
[2022-06-25] MEDS: fentaNYL Patch Check Q Shift NOTE FOLLOW UP SCH (19:10)
[2022-06-25] MEDS: Ondansetron 4 mg VIAL 2 MG/ML 2 ml VIAL IV PRN (19:41)
[2022-06-26] MEDS: fentaNYL Patch Check Q Shift NOTE FOLLOW UP SCH ×2 (06:47→18:43)
[2022-06-26 08:01] LABS: Hematocrit 38 % (42-52); Hemoglobin 12.8 g/dL (14.0-18.0); Mean Corpuscular HGB Conc 34 g/dL (31-36); Mean Corpuscular Hemoglobin 29 pg (27-31); Mean Corpuscular Volume 85 fL (80-94); Mean Platelet Volume 9.1 fL (7.4-10.4); Platelet Count 133 10^3/uL (150-450); Red Blood Count 4.46 10^6 /uL (4.18-5.48); Red Cell Distribution Width 15 % (10-15); White Blood Count 14.5 10^3/uL (3.5-10.8)
[2022-06-26] MEDS ORDERED: Naloxone 0.4 mg VIAL 0.4 mg/ml 1 ml VIAL IV PRN (08:22)
[2022-06-26 08:54] LABS: Calcium 7.7 mg/dL (8.6-10.3); Magnesium 1.8 mg/dL (1.9-2.7); Phosphorus 3.1 mg/dL (2.5-5.0); Potassium 3.5 mmol/L (3.5-5.0); eGFR CKD-EPI 84.1 (>60)
[2022-06-26] MEDS ORDERED: Propofol 10 MG/ML 20 ML BTL ONE (08:54)
[2022-06-26] MEDS ORDERED: Lidocaine 2% PF 5 ML VIAL ONE (08:54)
[2022-06-26] MEDS ORDERED: Midazolam 2 mg/2 ml VIAL 1 mg/ml 2 ml VIAL (2 mg) ONE (08:54)
[2022-06-26] MEDS ORDERED: fentaNYL 100 mcg/2 ml 50 MCG/ML VIAL ONE ×3 (08:55→13:06)
[2022-06-26] MEDS ORDERED: Rocuronium 50 mg VIAL 10 mg/ml 5 ml VIAL (50 mg) ONE (08:55)
[2022-06-26] MEDS ORDERED: Clindamycin 900 MG/D5W BAG 900 MG/50 ML BAG IVPB ONE (09:05)
[2022-06-26 09:08] LABS: ABS Basophils 0.1 10^3/ul (0-0.2); ABS Eosinophils 0.1 10^3/ul (0-0.6); ABS Lymphocytes 1.2 10^3/ul (1.0-4.8); ABS Monocytes 1.6 10^3/ul (0-0.8); ABS Neutrophils 11.4 10^3/ul (1.5-7.7); Eosinophil % 0.9 %; Lymphocyte % 8.6 %; Nucleated Red Blood Cells % 0.1
[2022-06-26] MEDS ORDERED: Sevoflurane BOTTLE ONE ×2 (09:11→09:12)
[2022-06-26] MEDS ORDERED: NS 0.9% IVPB ONE (10:00)
[2022-06-26] MEDS ORDERED: GENTAMICIN ADULT IVPB ONE (10:00)
[2022-06-26] MEDS ORDERED: Dexamethasone IV 4 MG/ML VIAL 1 ml VIAL ONE (11:04)
[2022-06-26] MEDS ORDERED: Ondansetron 4 mg VIAL 2 MG/ML 2 ml VIAL ONE (11:04)
[2022-06-26] MEDS ORDERED: Phenylephrine 40 mcg/mL 10mL (400mcg) SYRINGE ONE (11:43)
[2022-06-26] MEDS ORDERED: Phenylephrine IV 10 MG/ML 1 ml VIAL ONE (11:43)
[2022-06-26] MEDS ORDERED: Acetaminophen IV 1 GM/100ML 1,000 MG/100 ML BAG IV ONE (12:47)
[2022-06-26] MEDS: fentaNYL 100 mcg/2 ml 50 MCG/ML VIAL IV PRN ×3 (12:49→13:07)
[2022-06-26] MEDS: Pantoprazole VIAL 40 MG VIAL IV SCH ×2 (14:36→20:05)
[2022-06-26] MEDS: PPN (PERIPHERAL) 24 HR with D10W 1000 ml BAG 1,000 ML, Amino Acid Infusion 10% 850 ML, ... IV SCH (17:36)
[2022-06-26] MEDS: HYDROmorphone 1 MG/1 ML SYRINGE IV SLOW PU PRN ×3 (17:46→23:43)
[2022-06-26] MEDS: Ondansetron 4 mg VIAL 2 MG/ML 2 ml VIAL IV PRN ×2 (17:46→21:57)
[2022-06-26] MEDS: Morphine ORAL CONCENTRATE 5 MG/0.25 ML ORAL.SYRIN SL PRN ×2 (18:32→21:57)
[2022-06-26] MEDS: Metoclopramide 5 MG/ML VIAL (10 mg) IV PRN (20:06)
[2022-06-26] MEDS: Heparin 5000 UNITS/ML 1 mL VIAL SUBCUT SCH (21:40)
[2022-06-27] MEDS: HYDROmorphone 1 MG/1 ML SYRINGE IV SLOW PU PRN ×8 (02:46→23:16)
[2022-06-27] MEDS: Ondansetron 4 mg VIAL 2 MG/ML 2 ml VIAL IV PRN ×4 (02:46→23:16)
[2022-06-27] MEDS: Metoclopramide 5 MG/ML VIAL (10 mg) IV PRN ×3 (04:59→19:41)
[2022-06-27] MEDS: Heparin 5000 UNITS/ML 1 mL VIAL SUBCUT SCH ×3 (05:59→21:53)
[2022-06-27] MEDS: Morphine ORAL CONCENTRATE 5 MG/0.25 ML ORAL.SYRIN SL PRN ×4 (06:08→15:09)
[2022-06-27] MEDS: Prochlorperazine 5 mg/ml 2 ml VIAL (10 mg) IV PRN (06:09)
[2022-06-27] MEDS: fentaNYL Patch Check Q Shift NOTE FOLLOW UP SCH ×2 (06:45→18:40)
[2022-06-27] MEDS: Pantoprazole VIAL 40 MG VIAL IV SCH ×2 (07:31→20:45)
[2022-06-27 07:39] LABS: Calcium 7.9 mg/dL (8.6-10.3); Magnesium 1.8 mg/dL (1.9-2.7); Phosphorus 3.5 mg/dL (2.5-5.0); Potassium 3.7 mmol/L (3.5-5.0); eGFR CKD-EPI 92.8 (>60)
[2022-06-27] MEDS: Scopolamine 1 mg/72hr PATCH TRANSDERM SCH (16:35)
[2022-06-27] MEDS: PPN (PERIPHERAL) 24 HR with D10W 1000 ml BAG 1,000 ML, Amino Acid Infusion 10% 850 ML, ... IV SCH (17:19)
[2022-06-27] MEDS ORDERED: Magnesium Sulfate IV 1GM/100ML 1 GM/100 ML BAG IV ONE (17:40)
[2022-06-27] MEDS ORDERED: fentaNYL PATCH 25 MCG/HR 1 PATCH TRANSDERM SCH (18:00)
[2022-06-28] MEDS: Metoclopramide 5 MG/ML VIAL (10 mg) IV PRN ×4 (02:19→22:23)
[2022-06-28] MEDS: HYDROmorphone 1 MG/1 ML SYRINGE IV SLOW PU PRN ×6 (02:19→16:44)
[2022-06-28] MEDS: Heparin 5000 UNITS/ML 1 mL VIAL SUBCUT SCH ×3 (05:24→21:53)
[2022-06-28] MEDS: Ondansetron 4 mg VIAL 2 MG/ML 2 ml VIAL IV PRN ×4 (05:30→19:30)
[2022-06-28 06:04] LABS: Hematocrit 40 % (42-52); Hemoglobin 13.2 g/dL (14.0-18.0); Mean Corpuscular HGB Conc 33 g/dL (31-36); Mean Corpuscular Hemoglobin 29 pg (27-31); Mean Corpuscular Volume 87 fL (80-94); Mean Platelet Volume 9.3 fL (7.4-10.4); Platelet Count 161 10^3/uL (150-450); Red Blood Count 4.61 10^6 /uL (4.18-5.48); Red Cell Distribution Width 15 % (10-15); White Blood Count 14.6 10^3/uL (3.5-10.8)
[2022-06-28 06:15] LABS: ABS Eosinophils 0.2 10^3/ul (0-0.6); ABS Lymphocytes 1.4 10^3/ul (1.0-4.8); ABS Monocytes 1.8 10^3/ul (0-0.8); ABS Neutrophils 11.3 10^3/ul (1.5-7.7); Lymphocyte % 9.5 %
[2022-06-28 06:55] LABS: Albumin 2.6 g/dL (3.2-5.2); Albumin/Globulin Ratio 1.2 (1-3); Calcium 7.9 mg/dL (8.6-10.3); Globulin 2.2 g/dL (2-4); Magnesium 1.9 mg/dL (1.9-2.7); Phosphorus 2.8 mg/dL (2.5-5.0); Potassium 4.1 mmol/L (3.5-5.0); Total Bilirubin 0.5 mg/dL (0.2-1.0); Total Protein 4.8 g/dL (6.4-8.9); eGFR CKD-EPI 97.8 (>60)
[2022-06-28] MEDS: fentaNYL Patch Check Q Shift NOTE FOLLOW UP SCH ×2 (07:01→19:01)
[2022-06-28] MEDS: Prochlorperazine 5 mg/ml 2 ml VIAL (10 mg) IV PRN ×2 (08:06→16:44)
[2022-06-28] MEDS: Pantoprazole VIAL 40 MG VIAL IV SCH ×2 (08:09→19:30)
[2022-06-28] MEDS: Morphine ORAL CONCENTRATE 5 MG/0.25 ML ORAL.SYRIN SL PRN ×2 (10:07→22:23)
[2022-06-28] MEDS ORDERED: HYDROmorphone 1 MG/1 ML SYRINGE IV SLOW PU PRN (16:49)
[2022-06-29] MEDS: Ondansetron 4 mg VIAL 2 MG/ML 2 ml VIAL IV PRN ×2 (00:21→09:03)
[2022-06-29] MEDS: Prochlorperazine 5 mg/ml 2 ml VIAL (10 mg) IV PRN (03:42)
[2022-06-29 06:28] LABS: Hematocrit 39 % (42-52); Hemoglobin 12.7 g/dL (14.0-18.0); Mean Corpuscular HGB Conc 33 g/dL (31-36); Mean Corpuscular Hemoglobin 29 pg (27-31); Mean Corpuscular Volume 87 fL (80-94); Mean Platelet Volume 9.8 fL (7.4-10.4); Platelet Count 158 10^3/uL (150-450); Red Blood Count 4.46 10^6 /uL (4.18-5.48); Red Cell Distribution Width 15 % (10-15); White Blood Count 13.4 10^3/uL (3.5-10.8)
[2022-06-29 06:32] LABS: ABS Eosinophils 0.1 10^3/ul (0-0.6); ABS Lymphocytes 1.5 10^3/ul (1.0-4.8); ABS Monocytes 1.9 10^3/ul (0-0.8); ABS Neutrophils 9.9 10^3/ul (1.5-7.7); Eosinophil % 0.9 %; Lymphocyte % 11.1 %
[2022-06-29] MEDS: Heparin 5000 UNITS/ML 1 mL VIAL SUBCUT SCH ×2 (06:57→14:27)
[2022-06-29] MEDS: fentaNYL Patch Check Q Shift NOTE FOLLOW UP SCH (06:58)
[2022-06-29] MEDS: Pantoprazole VIAL 40 MG VIAL IV SCH (09:03)
[2022-06-29 15:32] VITALS: BP 121/73
== END 2022-06-29 15:50 | disposition home or self-care (01) | DRG 240 ==
LOC: ED 12:59 → EDHOLD 12:59 → SUATTDRO 20:00 → MED 23:01 → SUATTDRO 06-21 20:15
PROVIDERS: ADMIT Internal Medicine; ATTEND Internal Medicine

== ENCOUNTER 2022-11-30 11:54 | Inpatient (IN) ==
[2022-11-30 13:47] LABS: ABS Lymphocytes 0.4 10^3/uL (1.0-4.8); ABS Monocytes 1.1 10^3/uL (0.0-1.1); ABS Neutrophils 10.3 10^3/uL (1.5-7.6); Hematocrit 29.3 % (38-53); Hemoglobin 9.8 g/dL (13.2-16.3); Lymphocyte % 3.6 %; Mean Corpuscular Hemoglobin 30.4 pg (27-33); Mean Corpuscular Hgb Conc 33.6 g/dL (31-36); Mean Corpuscular Volume 90.4 fL (80-97); Platelet Count 149 10^3/uL (150-450); Red Blood Count 3.24 10^6/uL (4.06-5.63); Red Cell Distribution Width 14.8 % (12-17); White Blood Count 11.9 10^3/uL (3.6-10.2)
[2022-11-30] MEDS ORDERED: cefTRIAXone 1 gm/50 mL D5W 1 GM/50 ML BAG IV ONE (13:51)
[2022-11-30] MEDS ORDERED: Azithromycin 500 mg/250 ml NS 500 MG/250 ML BAG IVPB ONE (13:51)
[2022-11-30 14:05] LABS: Albumin/Globulin Ratio 1.2 (1-3); C Reactive Protein 17.45 mg/L (<8.01); Calcium 8.6 mg/dL (8.6-10.3); Creatinine, Serum 0.91 mg/dL (0.67-1.17); Globulin 2.6 g/dL (2-4); Potassium 4.2 mmol/L (3.5-5.0); Total Bilirubin 0.5 mg/dL (0.2-1.0); Total Protein 5.6 g/dL (6.4-8.9); eGFR CKD-EPI 96.5 (>60)
[2022-11-30 14:08] LABS: Activated Partial Thrombo Time 36.1 seconds (26.0-38.0); INR 1.06 (0.88-1.18)
[2022-11-30] MEDS ORDERED: Iohexol 350 (CONTRAST) 500 ML MDV IV ONE (14:16)
[2022-11-30] MEDS ORDERED: Furosemide 40 mg/4 ml IV VIAL IV ONE (14:43)
[2022-11-30 15:49] LABS: High Sensitivity Troponin 1 Hr 60 pg/mL (<20)
[2022-11-30 16:38] LABS: PCO2 Arterial 35 mmHg (35-45); PO2 Arterial 76 mmHg (80-100)
[2022-11-30] MEDS ORDERED: Enoxaparin 40 MG/0.4 ML SYR SUBCUT SCH (17:00)
[2022-11-30 18:06] LABS: Urine Appearance Clear; Urine Bilirubin Negative (Negative); Urine Blood Negative (Negative); Urine Color Colorless; Urine Glucose Negative (Negative); Urine Ketones Negative (Negative); Urine Nitrite Negative (Negative); Urine Protein Negative (Negative); Urine Specific Gravity 1.009 (1.002-1.030); Urine Urobilinogen Negative (Negative)
[2022-11-30 18:28] LABS: High Sensitivity Troponin 3 Hr 60 pg/mL (<20)
[2022-11-30 22:26] LABS: Ferritin 266.6 ng/mL (24-336)
[2022-11-30 22:30] LABS: Folate 9.49 ng/mL (5.90-24.80)
[2022-11-30] MEDS: Morphine ORAL.SOLN 10 mg 2 mg/ml UDC 5 ml (10 mg) PO PRN (22:52)
[2022-11-30] MEDS: Morphine ER 30 mg TAB ** extended release PO SCH (23:08)
[2022-12-01] MEDS ORDERED: Metoprolol Tartrate 5 mg VIAL 5 ml VIAL (1 mg/ml) IV ONE (01:07)
[2022-12-01] MEDS ORDERED: Digoxin IV 0.5 MG/2 ML AMP (0.25 MG/ML) IV SLOW PU ONE (01:38)
[2022-12-01] MEDS: Digoxin IV 0.5 MG/2 ML AMP (0.25 MG/ML) IV SLOW PU SCH ×2 (02:23→08:48)
[2022-12-01] MEDS ORDERED: Enoxaparin 80 MG/0.8 ML SYR SUBCUT SCH (03:00)
[2022-12-01 06:46] LABS: ABS Lymphocytes 0.6 10^3/uL (1.0-4.8); ABS Monocytes 1.2 10^3/uL (0.0-1.1); ABS Neutrophils 9.7 10^3/uL (1.5-7.6); ABS Nucleated RBC 0.01 10^3/ul; Eosinophil % 0.3 %; Hematocrit 32.6 % (38-53); Hemoglobin 10.9 g/dL (13.2-16.3); Lymphocyte % 5.4 %; Mean Corpuscular Hemoglobin 30.2 pg (27-33); Mean Corpuscular Hgb Conc 33.5 g/dL (31-36); Mean Corpuscular Volume 90.3 fL (80-97); Mean Platelet Volume 8.2 fL (7.5-11.2); Nucleated Red Blood Cells % 0.1 /100 WBC (0.0-0.4); Platelet Count 172 10^3/uL (150-450); Red Blood Count 3.61 10^6/uL (4.06-5.63); White Blood Count 11.6 10^3/uL (3.6-10.2)
[2022-12-01 07:07] LABS: Albumin 3.1 g/dL (3.2-5.2); Creatinine, Serum 0.78 mg/dL (0.67-1.17); Globulin 3.1 g/dL (2-4); Magnesium 1.9 mg/dL (1.9-2.7); Potassium 3.9 mmol/L (3.5-5.0); Total Bilirubin 0.6 mg/dL (0.2-1.0); Total Protein 6.2 g/dL (6.4-8.9); eGFR CKD-EPI 102.1 (>60)
[2022-12-01] MEDS: Morphine ER 30 mg TAB ** extended release PO SCH ×2 (08:50→19:24)
[2022-12-01] MEDS: Furosemide 40 mg/4 ml IV VIAL IV SCH (08:57)
[2022-12-01 12:26] LABS: High Sensitivity Troponin 1 Hr 54 pg/mL (<20)
[2022-12-01] MEDS ORDERED: Ondansetron 4 mg VIAL 2 MG/ML 2 ml VIAL IV PRN (14:28)
[2022-12-01] MEDS ORDERED: Calcium Carb (TUMS) 500 mg CHEW TAB PO PRN (19:44)
[2022-12-01] MEDS: Morphine ORAL.SOLN 10 mg 2 mg/ml UDC 5 ml (10 mg) PO PRN (22:17)
[2022-12-02] MEDS ORDERED: Enoxaparin 60 MG/0.6 ML SYR SUBCUT SCH (03:00)
[2022-12-02] MEDS: Enoxaparin 60 MG/0.6 ML SYR SUBCUT SCH ×2 (05:52→19:59)
[2022-12-02 06:21] LABS: Hematocrit 32.4 % (38-53); Hemoglobin 10.9 g/dL (13.2-16.3); Mean Corpuscular Hgb Conc 33.5 g/dL (31-36); Mean Corpuscular Volume 92.3 fL (80-97); Mean Platelet Volume 8.2 fL (7.5-11.2); Platelet Count 172 10^3/uL (150-450); Red Blood Count 3.51 10^6/uL (4.06-5.63); Red Cell Distribution Width 14.8 % (12-17); White Blood Count 9.8 10^3/uL (3.6-10.2)
[2022-12-02 06:40] LABS: Albumin 2.9 g/dL (3.2-5.2); Calcium 8.6 mg/dL (8.6-10.3); Potassium 3.5 mmol/L (3.5-5.0); Total Bilirubin 0.6 mg/dL (0.2-1.0)
[2022-12-02 06:46] LABS: Albumin/Globulin Ratio 1.2 (1-3); Creatinine, Serum 0.87 mg/dL (0.67-1.17); Globulin 2.4 g/dL (2-4); Total Protein 5.3 g/dL (6.4-8.9); eGFR CKD-EPI 98.8 (>60)
[2022-12-02] MEDS: Morphine ER 30 mg TAB ** extended release PO SCH ×2 (10:30→20:00)
[2022-12-02] MEDS: Furosemide 40 mg/4 ml IV VIAL IV SCH (10:32)
[2022-12-03] MEDS: Enoxaparin 60 MG/0.6 ML SYR SUBCUT SCH (05:39)
[2022-12-03 06:25] LABS: Calcium 8.4 mg/dL (8.6-10.3); Creatinine, Serum 0.83 mg/dL (0.67-1.17); Magnesium 1.9 mg/dL (1.9-2.7); Potassium 3.9 mmol/L (3.5-5.0); eGFR CKD-EPI 100.2 (>60)
[2022-12-03] MEDS ORDERED: Magnesium Sulfate IV 1GM/100ML 1 GM/100 ML BAG IV ONE (08:30)
[2022-12-03] MEDS ORDERED: Potassium Chloride LIQUID 20 MEQ/15 ML LIQUID PO ONE (08:45)
[2022-12-03] MEDS ORDERED: Nicotine PATCH 14 MG/24 HR PATCH TRANSDERM SCH (09:00)
[2022-12-03] MEDS ORDERED: Aminophylline 25 MG/ML VIAL ONE (09:35)
[2022-12-03] MEDS ORDERED: Regadenoson 0.4 MG/5 ML SYRINGE ONE (09:35)
[2022-12-03 11:56] LABS: HDL Cholesterol 34.5 mg/dL
[2022-12-03] MEDS: Morphine ER 30 mg TAB ** extended release PO SCH (12:06)
[2022-12-03] MEDS: Furosemide 40 mg/4 ml IV VIAL IV SCH (12:09)
[2022-12-03 15:57] VITALS: BP 117/63
== END 2022-12-03 15:45 | disposition home or self-care (01) | DRG 194 ==
LOC: ED 11:54 → SUATTDRO 16:03 → EDHOLD 16:03 → MEDTELE 12-01 00:01
PROVIDERS: ADMIT Internal Medicine; ATTEND Internal Medicine

== ENCOUNTER 2023-05-02 19:14 | Inpatient (IN) ==
[2023-05-02 20:04] LABS: INR 1.65 (0.83-1.13)
[2023-05-02 20:06] LABS: Albumin 3.3 g/dL (3.2-5.2); Albumin/Globulin Ratio 1.2 (1-3); Calcium 8.3 mg/dL (8.6-10.3); Creatinine, Serum 1.08 mg/dL (0.67-1.17); Globulin 2.8 g/dL (2-4); Potassium 4.6 mmol/L (3.5-5.0); Total Bilirubin 0.6 mg/dL (0.2-1.0); Total Protein 6.1 g/dL (6.4-8.9); eGFR CKD-EPI 78.1 (>60)
[2023-05-02 20:07] LABS: Hemoglobin 9.6 g/dL (13.2-16.3); Mean Corpuscular Hgb Conc 31.9 g/dL (31-36); Mean Corpuscular Volume 75.3 fL (80-97); Mean Platelet Volume 9.5 fL (7.5-11.2); Platelet Count 154 10^3/uL (150-450); Red Blood Count 3.98 10^6/uL (4.06-5.63); Red Cell Distribution Width 18.1 % (12-17); White Blood Count 10.9 10^3/uL (3.6-10.2)
[2023-05-02 20:43] LABS: Magnesium 2.1 mg/dL (1.9-2.7)
[2023-05-02 21:24] LABS: High Sensitivity Troponin 1 Hr 47 pg/mL (<20)
[2023-05-02 21:36] LABS: ABS Lymphocytes 0.5 10^3/uL (1.0-4.8); ABS Monocytes 1.8 10^3/uL (0.0-1.1); ABS Neutrophils 8.6 10^3/uL (1.5-7.6); ABS Nucleated RBC 0.01 10^3/ul; Eosinophil % 0.1 %; Lymphocyte % 4.3 %; Nucleated Red Blood Cells % 0.1 %/100WBC (0.0-0.8)
[2023-05-02] MEDS ORDERED: Furosemide 20 mg/2 ml IV VIAL IV SLOW PU ONE (21:42)
[2023-05-02] MEDS ORDERED: dilTIAZem 30 MG TAB PO ONE (21:42)
[2023-05-02] MEDS ORDERED: Aztreonam 1 GM in NS 0.9% 50 ML 50 ML IV ONE (21:45)
[2023-05-02] MEDS ORDERED: Vancomycin 750 MG in NS 0.9% 250 ml 250 ML IVPB SCH (22:00)
[2023-05-02] MEDS ORDERED: Albuterol/Ipratropium NEB.SOL (2.5/0.5 MG) 3 ML NEB.SOLN INH ONE (22:07)
[2023-05-02] MEDS ORDERED: Metoprolol Tartrate 5 mg VIAL 5 ml VIAL (1 mg/ml) IV PRN (23:32)
[2023-05-03] MEDS ORDERED: Metoprolol Tartrate 5 mg VIAL 5 ml VIAL (1 mg/ml) IV PRN (00:03)
[2023-05-03] MEDS ORDERED: Acetaminophen IV 1 GM/100ML 1,000 MG/100 ML BAG IV PRN (04:04)
[2023-05-03] MEDS ORDERED: Morphine 2 MG/ML SYRINGE IV PRN ×2 (04:05→04:07)
[2023-05-03] MEDS ORDERED: Ondansetron ODT 4 mg TAB 4 MG TAB PO PRN (06:13)
[2023-05-03] MEDS ORDERED: Iohexol 300 (CONTRAST) 10 ML SDV IV ONE (06:30)
[2023-05-03 07:21] LABS: Hematocrit 33.4 % (38-53); Hemoglobin 10.6 g/dL (13.2-16.3); Mean Corpuscular Hemoglobin 23.4 pg (27-33); Mean Corpuscular Hgb Conc 31.6 g/dL (31-36); Mean Corpuscular Volume 74.2 fL (80-97); Mean Platelet Volume 9.1 fL (7.5-11.2); Platelet Count 167 10^3/uL (150-450); Red Blood Count 4.51 10^6/uL (4.06-5.63); Red Cell Distribution Width 18.7 % (12-17); White Blood Count 12.7 10^3/uL (3.6-10.2)
[2023-05-03 07:37] LABS: C Reactive Protein 82.25 mg/L (<8.01); Calcium 9.2 mg/dL (8.6-10.3); Creatinine, Serum 1.12 mg/dL (0.67-1.17); eGFR CKD-EPI 74.7 (>60)
[2023-05-03 08:37] LABS: ABS Lymphocytes 0.5 10^3/uL (1.0-4.8); ABS Monocytes 1.9 10^3/uL (0.0-1.1); ABS Neutrophils 10.3 10^3/uL (1.5-7.6); Lymphocyte % 3.7 %
[2023-05-03] MEDS: cefTRIAXone 1 gm/50 mL D5W 1 GM/50 ML BAG IV SCH (08:42)
[2023-05-03] MEDS: Azithromycin 500 mg/250 ml NS 500 MG/250 ML BAG IVPB SCH (08:52)
[2023-05-03] MEDS ORDERED: Iodixanol (CONTRAST) 320 MG/ML 100 ML SDV IV ONE (09:00)
[2023-05-03] MEDS: Furosemide 40 mg/4 ml IV VIAL IV SLOW PU SCH (11:42)
[2023-05-03] MEDS: Morphine ORAL CONCENTRATE 5 MG/0.25 ML ORAL.SYRIN PO PRN (11:43)
[2023-05-03] MEDS: Ondansetron 4 mg VIAL 2 MG/ML 2 ml VIAL IV PRN (12:24)
[2023-05-03] MEDS ORDERED: Metoprolol Tartrate 5 mg VIAL 5 ml VIAL (1 mg/ml) IV ONE (14:29)
[2023-05-03] MEDS ORDERED: DIGOXIN 0.05 MG/ML FEED TUBE SCH (17:00)
[2023-05-03] MEDS: Sucralfate 1 gm SUSP 1 GM/10 ML UDC PO SCH ×2 (18:15→20:10)
[2023-05-03] MEDS ORDERED: Vancomycin 1,000 MG in NS 0.9% 250 ml 250 ML IVPB ONE (18:48)
[2023-05-03] MEDS ORDERED: NS 0.9% 1000 ml BAG 1,000 ML IV SCH (19:00)
[2023-05-03] MEDS: Morphine ER 30 mg TAB ** extended release PO SCH (20:10)
[2023-05-04] MEDS: Azithromycin 500 mg/250 ml NS 500 MG/250 ML BAG IVPB SCH (05:04)
[2023-05-04 05:10] LABS: Hematocrit 31.4 % (38-53); Mean Corpuscular Hemoglobin 23.7 pg (27-33); Mean Corpuscular Hgb Conc 31.8 g/dL (31-36); Mean Corpuscular Volume 74.5 fL (80-97); Mean Platelet Volume 9.3 fL (7.5-11.2); Platelet Count 178 10^3/uL (150-450); Red Blood Count 4.22 10^6/uL (4.06-5.63); Red Cell Distribution Width 18.7 % (12-17)
[2023-05-04 05:33] LABS: Albumin 3.2 g/dL (3.2-5.2); Albumin/Globulin Ratio 1.1 (1-3); Creatinine, Serum 1.06 mg/dL (0.67-1.17); Globulin 2.9 g/dL (2-4); Potassium 3.8 mmol/L (3.5-5.0); Total Bilirubin 0.9 mg/dL (0.2-1.0); Total Protein 6.1 g/dL (6.4-8.9); eGFR CKD-EPI 79.8 (>60)
[2023-05-04] MEDS ORDERED: MORPHINE 30 MG PO SCH ×2 (09:00)
[2023-05-04] MEDS: Pantoprazole VIAL 40 MG VIAL IV SCH (10:31)
[2023-05-04] MEDS: Furosemide 40 mg/4 ml IV VIAL IV SLOW PU SCH (10:33)
[2023-05-04] MEDS: cefTRIAXone 1 gm/50 mL D5W 1 GM/50 ML BAG IV SCH (10:45)
[2023-05-04] MEDS: Sucralfate 1 gm SUSP 1 GM/10 ML UDC PO SCH ×4 (10:48→22:08)
[2023-05-04] MEDS: Morphine ER 30 mg TAB ** extended release PO SCH ×2 (10:51→22:07)
[2023-05-04] MEDS ORDERED: Potassium Chlor 20 meq TAB.ER PO ONE (11:04)
[2023-05-04] MEDS ORDERED: Potassium Chloride LIQUID 20 MEQ/15 ML LIQUID PO ONE (14:45)
[2023-05-04] MEDS ORDERED: NS 0.9% 1000 ml BAG 1,000 ML IV ONE (17:50)
[2023-05-05] MEDS: Azithromycin 500 mg/250 ml NS 500 MG/250 ML BAG IVPB SCH (06:24)
[2023-05-05] MEDS: Sucralfate 1 gm SUSP 1 GM/10 ML UDC PO SCH ×4 (09:27→21:40)
[2023-05-05] MEDS: Pantoprazole VIAL 40 MG VIAL IV SCH (09:27)
[2023-05-05] MEDS: Furosemide 40 mg/4 ml IV VIAL IV SLOW PU SCH (09:27)
[2023-05-05] MEDS: Morphine ER 30 mg TAB ** extended release PO SCH ×2 (09:28→21:41)
[2023-05-05] MEDS: cefTRIAXone 1 gm/50 mL D5W 1 GM/50 ML BAG IV SCH (10:14)
[2023-05-05] MEDS ORDERED: Senna/Docusate 8.6/50 mg (NF) TAB PO SCH (15:00)
[2023-05-05] MEDS: Senna TAB 8.6 mg TAB PO SCH (17:36)
[2023-05-05] MEDS: Docusate LIQ 100 MG/10 ML UDC PO SCH (17:36)
[2023-05-05] MEDS ORDERED: Furosemide 40 mg/4 ml IV VIAL IV ONE (17:40)
[2023-05-06 06:21] LABS: ABS Lymphocytes 0.3 10^3/uL (1.0-4.8); ABS Monocytes 1.7 10^3/uL (0.0-1.1); ABS Neutrophils 10.5 10^3/uL (1.5-7.6); ABS Nucleated RBC 0.01 10^3/ul; Eosinophil % 0.1 %; Hematocrit 32.2 % (38-53); Hemoglobin 10.2 g/dL (13.2-16.3); Lymphocyte % 2.1 %; Mean Corpuscular Hemoglobin 23.5 pg (27-33); Mean Corpuscular Hgb Conc 31.9 g/dL (31-36); Mean Corpuscular Volume 73.8 fL (80-97); Mean Platelet Volume 8.8 fL (7.5-11.2); Nucleated Red Blood Cells % 0.1 %/100WBC (0.0-0.8); Platelet Count 212 10^3/uL (150-450); Red Blood Count 4.36 10^6/uL (4.06-5.63); Red Cell Distribution Width 18.5 % (12-17); White Blood Count 12.5 10^3/uL (3.6-10.2)
[2023-05-06 06:36] LABS: Calcium 8.4 mg/dL (8.6-10.3); Creatinine, Serum 0.96 mg/dL (0.67-1.17); Magnesium 1.9 mg/dL (1.9-2.7); Phosphorus 2.5 mg/dL (2.5-5.0); Potassium 3.1 mmol/L (3.5-5.0); eGFR CKD-EPI 89.9 (>60)
[2023-05-06] MEDS ORDERED: KCL 20 MEQ/100 ML IVPREMIX 20 MEQ/100 ML BAG IV ONE ×2 (08:11→13:18)
[2023-05-06] MEDS ORDERED: KCL 10 MEQ/50 ML IVPREMIX 10 MEQ/50 ML BAG IV ONE (08:12)
[2023-05-06] MEDS ORDERED: NS 0.9% 1000 ml BAG 1,000 ML IV SCH (08:15)
[2023-05-06] MEDS: Morphine ER 30 mg TAB ** extended release PO SCH ×2 (09:03→21:28)
[2023-05-06] MEDS: Docusate LIQ 100 MG/10 ML UDC PO SCH (09:04)
[2023-05-06] MEDS: Sucralfate 1 gm SUSP 1 GM/10 ML UDC PO SCH ×4 (09:04→21:29)
[2023-05-06] MEDS: Senna TAB 8.6 mg TAB PO SCH (09:05)
[2023-05-06] MEDS: Pantoprazole VIAL 40 MG VIAL IV SCH (09:13)
[2023-05-06] MEDS ORDERED: Potassium Chlor 20 meq TAB.ER PO ONE (09:51)
[2023-05-06] MEDS ORDERED: Magnesium Sulfate 2 gm BAG 2 GM/50 ML BAG IVPB ONE (09:53)
[2023-05-06] MEDS: Furosemide 40 mg/4 ml IV VIAL IV SLOW PU SCH ×2 (12:45→13:24)
[2023-05-06] MEDS: KCL 20 MEQ/100 ML IVPREMIX 20 MEQ/100 ML BAG IV SCH (13:17)
[2023-05-06] MEDS: Morphine ORAL CONCENTRATE 5 MG/0.25 ML ORAL.SYRIN PO PRN (18:30)
[2023-05-06] MEDS ORDERED: Potassium Chloride LIQUID 20 MEQ/15 ML LIQUID PO ONE (18:42)
[2023-05-07 05:24] LABS: ABS Lymphocytes 0.3 10^3/uL (1.0-4.8); ABS Monocytes 1.5 10^3/uL (0.0-1.1); Eosinophil % 0.3 %; Hematocrit 33.1 % (38-53); Hemoglobin 10.6 g/dL (13.2-16.3); Lymphocyte % 3.1 %; Mean Corpuscular Hemoglobin 23.7 pg (27-33); Mean Corpuscular Hgb Conc 32.2 g/dL (31-36); Mean Corpuscular Volume 73.7 fL (80-97); Mean Platelet Volume 8.5 fL (7.5-11.2); Platelet Count 228 10^3/uL (150-450); Red Blood Count 4.49 10^6/uL (4.06-5.63); Red Cell Distribution Width 18.3 % (12-17); White Blood Count 10.9 10^3/uL (3.6-10.2)
[2023-05-07 05:38] LABS: Calcium 8.3 mg/dL (8.6-10.3); Creatinine, Serum 0.93 mg/dL (0.67-1.17); Magnesium 2.1 mg/dL (1.9-2.7); Phosphorus 2.6 mg/dL (2.5-5.0); Potassium 3.8 mmol/L (3.5-5.0); eGFR CKD-EPI 93.4 (>60)
[2023-05-07] MEDS: Morphine ORAL CONCENTRATE 5 MG/0.25 ML ORAL.SYRIN PO PRN ×3 (08:50→22:13)
[2023-05-07] MEDS: Sucralfate 1 gm SUSP 1 GM/10 ML UDC PO SCH ×4 (08:55→22:12)
[2023-05-07] MEDS: Furosemide 40 mg/4 ml IV VIAL IV SLOW PU SCH (08:55)
[2023-05-07] MEDS: Docusate LIQ 100 MG/10 ML UDC PO SCH (08:55)
[2023-05-07] MEDS: Pantoprazole VIAL 40 MG VIAL IV SCH (08:58)
[2023-05-07] MEDS: Senna TAB 8.6 mg TAB PO SCH (08:59)
[2023-05-07] MEDS: Morphine ER 30 mg TAB ** extended release PO SCH ×2 (09:07→22:00)
[2023-05-07] MEDS ORDERED: Furosemide 20 mg/2 ml IV VIAL IV SLOW PU ONE (09:25)
[2023-05-07] MEDS: KCL 20 MEQ/100 ML IVPREMIX 20 MEQ/100 ML BAG IV SCH (12:49)
[2023-05-07] MEDS: Ondansetron 4 mg VIAL 2 MG/ML 2 ml VIAL IV PRN (18:47)
[2023-05-08 05:57] LABS: Calcium 9.1 mg/dL (8.6-10.3); Magnesium 2.2 mg/dL (1.9-2.7); Phosphorus 3.8 mg/dL (2.5-5.0); Potassium 4.1 mmol/L (3.5-5.0); eGFR CKD-EPI 85.6 (>60)
[2023-05-08 06:38] LABS: ABS Lymphocytes 0.3 10^3/uL (1.0-4.8); ABS Monocytes 1.8 10^3/uL (0.0-1.1); ABS Neutrophils 9.4 10^3/uL (1.5-7.6); ABS Nucleated RBC 0.01 10^3/ul; Eosinophil % 0.3 %; Hematocrit 37.3 % (38-53); Hemoglobin 11.9 g/dL (13.2-16.3); Mean Corpuscular Hemoglobin 23.6 pg (27-33); Mean Corpuscular Hgb Conc 31.8 g/dL (31-36); Mean Corpuscular Volume 74.1 fL (80-97); Nucleated Red Blood Cells % 0.1 %/100WBC (0.0-0.8); Platelet Count 274 10^3/uL (150-450); Red Blood Count 5.03 10^6/uL (4.06-5.63); White Blood Count 11.6 10^3/uL (3.6-10.2)
[2023-05-08] MEDS: Sucralfate 1 gm SUSP 1 GM/10 ML UDC PO SCH ×4 (07:48→20:19)
[2023-05-08] MEDS ORDERED: Furosemide 40 mg/4 ml IV VIAL IV SCH (09:00)
[2023-05-08] MEDS: Morphine ER 30 mg TAB ** extended release PO SCH ×2 (09:43→20:19)
[2023-05-08] MEDS: Senna TAB 8.6 mg TAB PO SCH (09:45)
[2023-05-08] MEDS: Docusate LIQ 100 MG/10 ML UDC PO SCH (09:46)
[2023-05-08] MEDS: Pantoprazole VIAL 40 MG VIAL IV SCH (09:47)
[2023-05-08] MEDS: Morphine ORAL CONCENTRATE 5 MG/0.25 ML ORAL.SYRIN PO PRN ×3 (11:17→20:36)
[2023-05-09] MEDS: Nicotine PATCH 21 MG/24 HR PATCH TRANSDERM SCH ×2 (02:02→10:12)
[2023-05-09] MEDS: Sucralfate 1 gm SUSP 1 GM/10 ML UDC PO SCH ×2 (06:41→11:45)
[2023-05-09 06:48] LABS: ABS Lymphocytes 0.5 10^3/uL (1.0-4.8); ABS Neutrophils 9.3 10^3/uL (1.5-7.6); Eosinophil % 0.3 %; Hematocrit 34.6 % (38-53); Hemoglobin 10.9 g/dL (13.2-16.3); Lymphocyte % 3.9 %; Mean Corpuscular Hemoglobin 23.2 pg (27-33); Mean Corpuscular Hgb Conc 31.5 g/dL (31-36); Mean Corpuscular Volume 73.8 fL (80-97); Mean Platelet Volume 8.1 fL (7.5-11.2); Platelet Count 247 10^3/uL (150-450); Red Blood Count 4.69 10^6/uL (4.06-5.63); Red Cell Distribution Width 18.7 % (12-17); White Blood Count 11.7 10^3/uL (3.6-10.2)
[2023-05-09 06:59] LABS: Calcium 8.7 mg/dL (8.6-10.3); Creatinine, Serum 1.08 mg/dL (0.67-1.17); Magnesium 2.1 mg/dL (1.9-2.7); Phosphorus 3.1 mg/dL (2.5-5.0); Potassium 4.4 mmol/L (3.5-5.0); eGFR CKD-EPI 78.1 (>60)
[2023-05-09] MEDS ORDERED: Furosemide 40 mg/4 ml IV VIAL IV SCH (09:00)
[2023-05-09] MEDS: Docusate LIQ 100 MG/10 ML UDC PO SCH (10:10)
[2023-05-09] MEDS: Pantoprazole VIAL 40 MG VIAL IV SCH (10:11)
[2023-05-09] MEDS: Senna TAB 8.6 mg TAB PO SCH (10:11)
[2023-05-09] MEDS: Morphine ER 30 mg TAB ** extended release PO SCH (10:11)
[2023-05-09] MEDS ORDERED: Senna TAB 8.6 mg TAB PO ONE (12:00)
[2023-05-09] MEDS ORDERED: Docusate LIQ 100 MG/10 ML UDC PO ONE (12:00)
[2023-05-09 13:22] VITALS: BP 130/65
== END 2023-05-09 14:33 | disposition home or self-care (01) | DRG 133 ==
LOC: ED 19:14 → EDHOLD 19:14 → SUATTDRO 22:51 → MEDTELE 05-03 03:19
PROVIDERS: ADMIT Internal Medicine; ATTEND Hospitalist